=== PATIENT | female | born 1955 | race Caucasian/White ===

== ENCOUNTER 2017-12-08 00:50 | Emergency (ER) | payer MEDICARE, OTHER ==
[~2017-12-08] VITALS: Ht 170.2 cm; Wt 105.2 kg
[~2017-12-08 00:50] MED LIST: EFFEXOR XR75 MG PO; GABAPENTIN400 MG PO; METFORMIN HCL500 M3; PRILOSEC40 MG PO; Z.0.COZAAR50 MG PO; Z.0.DILAUDID4 MG PO; Z.0.LEVOTHYROXINE100; Z.0.TOPROL XL50 MG PO
--- OUTSIDE RECORDS SUMMARY | 2017-12-08 00:54 | XMS REPORT | Summary of Care ---
Author Author Idalia Walsh R.N. Organization Unknown Address Unknown Phone Unavailable Care Team Providers Care Certified Health Education Specialist Name Role Phone ROCAEL MODI M.D. Unavailable Unavailable Idalia Walsh R.N. Unavailable Unavailable Unavailable Unavailable Functional Status Name Dates Details Functional status health issues are not documented Status: Name Dates Details Cognitive status health issues are not documented Status: Problems Name Dates Details Abnormal weight gain (783.1, R63.5) Status: Active Vitamin deficiency (269.2, E56.9) Status: Active Diaphoresis (780.8, R61) Status: Active Essential (primary) hypertension (401.9, I10) Status: Active Fibromyalgia (729.1, M79.7) Status: Active NIGHAT on CPAP (327.23, G47.33) Status: Active Obesity, Class II, BMI 35-39.9 (278.00, E66.9) Status: Active Obesity (278.00, E66.9) Status: Active Hypothyroidism (244.9, E03.9) Status: Active Medications Name Dates Details Hydrocodone-Acetaminophen 10-325 MG Oral Tablet TAKE 1 TABLET twice DAILY Active Losartan Potassium 50 MG Oral Tablet TAKE 1 TABLET TWICE DAILY * Refills: 0 Active Gabapentin 800 MG Tab (OR) - 61186_Deactivated TAKE 1 TABLET 4 TIMES DAILY. * Refills: 0 Active Spironolactone 25 MG Oral Tablet TAKE 1 TABLET DAILY * Refills: 0 Active Oxybutynin Chloride 5 MG Oral Tablet TAKE 1 TABLET DAILY * Refills: 0 Active Pantoprazole Sodium 40 MG Oral Tablet Delayed Release TAKE 1 TABLET DAILY * Refills: 0 Active Levothyroxine Sodium 112 MCG Oral Tablet TAKE 1 TABLET DAILY DIRECTED. * Quantity: 90 Refills: 1 ROCAEL MODI M.D. * Start : 14-Apr-2014 Active Abilify 5 MG Oral Tablet TAKE 1 TABLET DAILY. * Refills: 0 Active Estradiol 1 MG Oral Tablet TAKE 1 TABLET DAILY. * Refills: 0 Active Meloxicam 15 MG Oral Tablet ONCE DAILY * Refills: 0 Active Estradiol 0.05 MG/24HR Transdermal Patch Twice Weekly APPLY 1 PATCH TWICE WEEKLY DIRECTED. * Refills: 0 Active Atenolol 50 MG Oral Tablet TAKE 1 TABLET DAILY. * Refills: 0 Active Multivitamins TABS take 2 tab PO daily * Refills: 0 Active Allergies and Adverse Reactions Name Dates Details Codeine Derivatives (Allergy) Status: Active Past Medical History Name Dates Details History of Depressive disorder (311, F32.9) Status: Resolved History of essential hypertension (V12.59, Z86.79) Status: Resolved History of Hypogammaglobulinemia (279.00, D80.1) Status: Resolved History of neuropathy (V12.49, Z86.69) Status: Resolved History of obesity (V12.29, Z86.39) Status: Resolved History of postmenopausal hormone replacement therapy (V87.49, Z92.29) Status: Resolved History of uterine fibroid (V13.29, Z86.018) Status: Resolved Personal history of fibromyalgia (V13.59, Z87.39) Status: Resolved Procedures Procedure Dates Details History of Tonsillectomy Completed History of Back Surgery Completed History of Knee Surgery Completed History of Total Abdominal Hysterectomy With Removal Of Ovary(S) Completed History of balloon sinuplasty Completed Immunization Name Dates Details Immunizations not documented Family History Name Dates Details Family history of essential hypertension (V17.49, Z82.49) Comments: Family History Status: Active Family history of Depression, acute (296.20, F32.9) Comments: Family History Status: Active Family history of gallbladder disease (V18.59, Z83.79) Comments: Family History Status: Active Name Dates Details Family history of Hypogammaglobulinemia (279.00, D80.1) Status: Active Name Dates Details Family history of malignant neoplasm (V16.9, Z80.9) Status: Active Family history of glaucoma (V19.11, Z83.511) Status: Active Family history of hypothyroidism (V18.19, Z83.49) Status: Active Name Dates Details Family history of Hypogammaglobulinemia (279.00, D80.1) Status: Active Name Dates Details Family history of sleep apnea (V19.8, Z82.0) Status: Active Social History Name Dates Details - Status: Name Dates Details Never smoker Vital Signs Date Test Result Details No Known Vitals to report Results Date Description Value Details Results not documented Plan of Care Name Dates Details Planned Observations Planned Goals not documented Instructions Name Dates Details Instructions not documented Encounters Appointment; ROCAEL MODI M.D. Encounter Diagnosis: Problem not documented On: 03-Jul-2016 13:00 Appointment; ROCAEL MODI M.D. Encounter Diagnosis: Problem not documented On: 13-Dec-2016 14:00 Appointment; ROCAEL MODI M.D. Encounter Diagnosis: Problem not documented On: 28-Mar-2017 16:00
--- OUTSIDE RECORDS SUMMARY | 2017-12-08 00:54 | XMS REPORT | Clinical Summary ---
Author Author Kalpesh Mormon Organization [facility] Address Unknown Phone Unavailable Care Team Providers Care Slip Bridge Operator Name Role Phone Asked, Pcp PCP Unavailable Allergies Active Allergy Reactions Severity Noted Date Comments Codeine Other (See Comments) 12/02/2017 nausea Metronidazole Hives 12/02/2017 Current Medications Prescription Sig. Disp. Refills Start End Date Status Date ARIPiprazole (ABILIFY) 10 11/29/19 Active MG tablet 18 atenolol (TENORMIN) 50 MG Take 50 mg by mouth 1 09/22/20 Active tablet daily. 17 eszopiclone (LUNESTA) 3 Take 3 mg by mouth 0 10/15/19 Active mg tablet nightly. 18 ELIAS-D 12 HOUR 60-120 Take 1 tablet by mouth 2 0 09/13/20 Active mg per 12 hr tablet (two) times a day. 17 gabapentin (NEURONTIN) 09/07/20 Active 800 mg tablet 17 HYDROcodone-acetaminophen Take 1 tablet by mouth 4 0 10/29/19 Active (NORCO) 10-325 mg per (four) times a day. 18 tablet levothyroxine (SYNTHROID, Take 112 mcg by mouth 1 10/09/19 Active LEVOXYL) 112 mcg tablet daily. 18 meloxicam (MOBIC) 15 mg Take 15 mg by mouth 2 10/09/19 Active tablet daily. 18 oxybutynin (DITROPAN) 5 11/29/19 Active MG tablet 18 pantoprazole (PROTONIX) TAKE 1 TABLET BY MOUTH 1 09/09/20 Active 40 MG EC tablet EVERY DAY FOR 90 DAYS 17 spironolactone Take 25 mg by mouth 0 10/18/19 Active (ALDACTONE) 25 MG tablet daily. 18 losartan (COZAAR) 50 MG Take 50 mg by mouth 2 1 09/24/20 Active tablet (two) times a day. 17 estradiol (VIVELLE-DOT) Place 1 patch (0.025 mg 24 patch 4 12/02/19 12/02/19 Active 0.025 mg/24 total) on the skin 2 18 19 hrIndications: Hormone (two) times a week. replacement therapy estradiol (VIVELLE-DOT) Place 1 patch (0.05 mg 8 patch 0 11/20/19 Discontin 0.05 mg/24 hr total) on the skin 2 18 18 ued times weekly. Active Problems Not on file Encounters Date Type Specialty Care Team Description 12/02/2017 Office Visit Obstetrics and Gynecology Dean Sy MD Breast cancer screening (Primary Dx); Hormone replacement therapy 11/14/2017 Refill Obstetrics and Gynecology Dean Sy MD after 12/07/2016 Family History Medical History Relation Name Comments Anemia Father Stroke Father Colon cancer Mother Relation Name Status Comments Father Mother Social History Tobacco Use Types Packs/Day Years Used Date Never Smoker Smokeless Tobacco: Never Used Alcohol Use Drinks/Week oz/Week Comments No Sex Assigned at Date Recorded Not on file Last Filed Vital Signs Vital Sign Reading Time Taken Blood Pressure 130/83 12/02/2017 1:36 PM [employer] WORK[employer] HEL[employer] Pulse 66 12/02/2017 1:36 PM SHE[employer] WORK[employer] Temperature - - Respiratory Rate - - Oxygen Saturation - - Inhaled Oxygen - - Concentration Weight 119 kg (262 lb) 12/02/2017 1:36 PM [employer] WORK[employer] HEL[employer] Height 170.2 cm (5' 7") 12/02/2017 1:36 PM SHE[employer] MET[employer] WORK[employer] HEL[employer] Body Mass Index 41.04 12/02/2017 1:36 PM SHE[employer] HEL[employer] Plan of Treatment Health Maintenance Due Date Last Done Comments PAP SMEAR 1975 COLONOSCOPY 2004 MAMMOGRAM 2004 ZOSTER VACCINE 2014 INFLUENZA VACCINE 05/07/2017 Results Not on fileafter 12/07/2016 Insurance Payer Benefit Subscriber ID Type Phone Address Plan / Group MEDICARE MEDICARE xxxxxxxxxx Medicare [facility] [place] PART A AND B [facility] xxxxxxxxx HMO/PPO THCARE CHOICE/[place] + [place] [address]
[2017-12-08] MEDS ORDERED: MELOXICAM7.5 MG PO (01:14)
[2017-12-08] MEDS ORDERED: ATENOLOL50 MG (01:14)
[2017-12-08] MEDS ORDERED: OXYBUTYNIN CHLOR5 M1 (01:14)
[2017-12-08] MEDS ORDERED: IBUPROFEN 600 MG TAB PO STA (01:18)
== END 2017-12-08 01:20 | disposition home or self-care (01) ==
LOC: FSED 00:50
DX: H10.9 Unspecified conjunctivitis (principal)
CPT/HCPCS: 99282

== ENCOUNTER → 2019-07-08 | Outpatient (CLI) | payer MEDICARE, OTHER ==
[~2019-07-08] MED LIST changes: +ATENOLOL50 MG; +MELOXICAM7.5 MG PO; +OXYBUTYNIN CHLOR5 M1
== END ==
LOC: SLEEP 20:20
PROVIDERS: ATTEND Internal Medicine
DX: G47.30 Sleep apnea, unspecified (principal)
CPT/HCPCS: 95810

== ENCOUNTER → 2019-09-23 | Outpatient (CLI) | payer MEDICARE, OTHER ==
--- NOTE | 2019-09-29 13:55 | Polysomnography ---
DATE OF STUDY: REFERRING PHYSICIAN: Abbey Ly MD STUDY: Polysomnography report. HISTORY OF PRESENT ILLNESS: The patient has a history of daytime somnolence and snoring. She had a prior study that showed obstructive sleep apnea. She now returns for a second night study with titration. INTERPRETATION: The patient slept for 378.5 minutes out of 405.5 minutes. The sleep efficiency was 93.3%. The sleep onset latency was 7 minutes. The latency to REM was 71 minutes. The patient spent 85.5 minutes in REM sleep, which is 22.6% of the night. The minimal saturation was 95%. The minimal heart rate was 40 beats per minute. There were no arrhythmias. This patient spent 6.5% of the night in the supine position and the remainder of the night in the non-supine position. The Castile sleep score was 4. The polysomnography desensitized the patient to CPAP. The patient then initiated CPAP of 5 cm of water pressure and gradually increased to 13 cm of water pressure. At 13 cm of water pressure, the nocturnal events were successfully eliminated. IMPRESSION: Successful treatment of obstructive sleep apnea with CPAP. RECOMMENDATIONS: 1. CPAP at 13 cm of water pressure. 2. Avoid alcohol or sedatives prior to retiring at night. 3. Achieve and maintain an ideal body weight. 4. Follow up in 3 months to ensure efficacy and compliance with CPAP. Alex Godfrey MD [facility]/MARIBELL /[id number]
== END ==
LOC: SLEEP 19:45
PROVIDERS: ATTEND Internal Medicine
DX: G47.33 Obstructive sleep apnea (adult) (pediatric) (principal); R06.83 Snoring
CPT/HCPCS: 95811

== ENCOUNTER → 2020-08-26 | Day surgery (SDC) | payer MEDICARE, OTHER ==
[2020-08-23 10:39] LABS: BASOPHILS % 0.4 % (0.0-1.0); EOSINOPHILS % 0.9 % (0.0-6.0); HEMATOCRIT 37.2 % (34.2-44.1); HEMOGLOBIN 12.7 g/dL (12.0-16.0); LYMPHOCYTES # (AUTO) 2.4 (1.0-3.2); LYMPHOCYTES % 51.4 % (18.0-39.1); MEAN CORPUSCULAR HEMOGLOBIN 30.7 pg (28-32); MEAN CORPUSCULAR HGB CONC 34.1 g/dL (31-35); MEAN CORPUSCULAR VOLUME 89.9 fL (81-99); MONOCYTES # (AUTO) 0.6 (0.2-0.8); MONOCYTES % 12.2 % (4.4-11.3); NEUTROPHILS # (AUTO) 1.6 (2.1-6.9); PLATELET COUNT 183 x10e3/uL (140-360); RED BLOOD COUNT 4.14 x10e6/uL (3.6-5.1)
--- NOTE | 2020-08-23 11:27 | Diagnostic Imaging Report ---
EXAMINATION: CHEST 2 VIEWS INDICATION: Preop for foot surgery ^PRE OP COMPARISON: None FINDINGS: TUBES and LINES: None. LUNGS: Lungs are well inflated. Lungs are clear. There is no evidence of pneumonia or pulmonary edema. PLEURA: No pleural effusion or pneumothorax. HEART AND MEDIASTINUM: The cardiomediastinal silhouette is unremarkable. BONES AND SOFT TISSUES: No acute osseous lesion. Soft tissues are unremarkable. UPPER ABDOMEN: No free air under the diaphragm. IMPRESSION: No acute thoracic abnormality. Signed by: Dr. Eduardo Wilson M.D. on 08/23/2020 11:23 AM
[2020-08-23 11:28] LABS: ANION GAP 12.6 mmol/L (8-16); CALCIUM 9.4 mg/dL (8.4-10.2); CREATININE, SERUM 1.23 mg/dL (0.57-1.11); POTASSIUM 4.6 mmol/L (3.5-5.1)
[~2020-08-26] MED LIST changes: +ABILIFY10 MG PO; -ATENOLOL50 MG; +ATENOLOL50 MG PO; +BELSOMRA20 MG PO; +BUPIVACAINE HCL 0.5% 10ML MPF VIAL INJ ONE; +CEFAZOLIN SOD 1 GM/NS 50ML 100 ML IV ONE; +DEXAMETHASONE SOD PHOS INJ 4 MG/ML VIAL ONE; +EPHEDRINE SULFATE INJ 50 MG/ML VIAL ONE; +FAMOTIDINE 20 MG/2 ML VIAL IV ONE; +FENTANYL CITRATE/PF 100MCG/2 ML INJ ONE; +HYDROCODONE/APAP 5MG-325MG TAB ONE; +KETOROLAC TROMETHAMINE 30 MG/ML VIAL ONE; +LIDOCAINE HCL 2% LOCAL INJ 5 ML SDV VIAL INJ ONE; +METOCLOPRAMIDE HCL 10 MG/2ML VIAL ONE; +MIDAZOLAM HCL 2 MG/2 ML VIAL ONE; +NEOSTIGMINE 1 MG/ML 10ML VIAL ONE; +ONDANSETRON HCL INJ 2MG/ML 2ML 2 MG/ML VIAL ONE; -OXYBUTYNIN CHLOR5 M1; +OXYBUTYNIN CHLOR5 M1 PO; +PROPOFOL IV EMULSION 10 MG/ML 20 ML VIAL ONE; +SEVOFLURANE INHAL SOLN 250 ML PEN BTL ONE; +TRAZODONE HCL50 MG PO; -Z.0.LEVOTHYROXINE100; +Z.0.LEVOTHYROXINE100 PO
--- NOTE | 2020-08-26 10:17 | Diagnostic Imaging Report ---
OR Fluoroscopy: IMPRESSION: Fluoroscopy service provided in the OR. Interpretation not requested. Signed by: Wade Horn MD on 08/26/2020 10:13 AM
[2020-08-26 11:15] VITALS: BP 133/64
--- NOTE | 2020-08-26 16:59 | Operative Report ---
DATE OF PROCEDURE: 08/26/2020 SURGEON: Shay Hicks DPM ROOM NUMBER: [facility]. PREOPERATIVE DIAGNOSES: 1. 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 2. Hypertrophy of the 4th metatarsal head of the right foot. 3. Contracted flexor tendon 2 and 3, right foot. 4. 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 ANESTHESIA: General endotracheal. HEMOSTASIS: A right thigh tourniquet at 350 mmHg. PROCEDURE IN DETAIL: The patient was taken to the operating room in a mildly sedated state and placed on the operating table in supine position. Following induction of general anesthetic, the right lower extremity was elevated to 60 degrees to exsanguinate before inflating the pneumatic thigh tourniquet at 350 mm for hemostasis. Right lower extremity was placed on the operating table prior to performing the following procedures: Procedure #1: The flexor tenotomy of digits 2 and 3 of the right foot with pinning. Linear incisions were placed on the plantar aspect of the 2nd and 3rd digits and the flexor tendons were identified and tenotomized. A 0.045 K-wire was used in a distal to proximal technique to pin the digits in the appropriate alignment to facilitate healing. The area was irrigated and simple closure of 4-0 nylon on the plantar aspect was performed. Attention was then directed to the 4th and 5th digit area of the right foot. The fistula interdigitally from chronic irritation was debrided and removed. This was cultured at the base after removal as well. The linear longitudinal incisions were made overlying the proximal interphalangeal joint levels of 4th and 5th digits as well as over the 4th metatarsal head laterally. All prominent bone was removed including the head of the proximal phalanx, 4th and 5th digits and the lateral aspect of the 5th metatarsal. These areas were all irrigated with copious amounts of sterile saline solution. Deep closure was 3-0 Vicryl. Subcutaneous closure was 4-0 Vicryl and skin closure 4-0 nylon. The digits had been pinned in the appropriate alignment utilizing 0.045 K-wires in a retrograde technique. The attention was then directed to the 3rd intermetatarsal space, where large recurrent neuroma was noted. Plantar dissection was performed with a plantar incision between the 3rd and 4th metatarsal. A very large neuroma structure was identified, traced back to its more proximal segment and resected sharply, irrigated with copious amounts of sterile saline solution. That neuroma was sent to pathology for further identification. TLS drain was installed and after closure, the appropriate mildly compressive dressings were applied. Release of the pneumatic thigh tourniquet showed a normal hyperemic flush to all digits of the right foot. All superficial and deep bleeders had been electrocauterized at time of surgery. The patient tolerated both anesthetic and procedure very well. KOKI Bell/LUCIEN /[id number]
== END | disposition home or self-care (01) ==
LOC: OR 06:13
PROVIDERS: ATTEND Podiatrist Foot Surgery
DX: M20.41 Other hammer toe(s) (acquired), right foot (principal); G57.61 Lesion of plantar nerve, right lower limb; M89.371 Hypertrophy of bone, right ankle and foot; G47.33 Obstructive sleep apnea (adult) (pediatric); I10 Essential (primary) hypertension; E03.9 Hypothyroidism, unspecified; K21.9 Gastro-esophageal reflux disease without esophagitis; F41.9 Anxiety disorder, unspecified; F32.9 Major depressive disorder, single episode, unspecified; Z88.6 Allergy status to analgesic agent; Z88.1 Allergy status to other antibiotic agents; Z01.810 Encounter for preprocedural cardiovascular examination; Z01.812 Encounter for preprocedural laboratory examination; Z01.818 Encounter for other preprocedural examination; Z20.828 Contact with and (suspected) exposure to other viral communicable diseases
CPT/HCPCS: 28080; 28104; 28285 ×2; 36415; 71046; 80048; 85025; 87071; 87075; 87205; 88305; 93005; C1713; J0690; J1100; J1885; J2001; J2250; J2405; J2704; J2710; J2765; J3010; Q4100; U0002; 76000; 88304